=== PATIENT | female | born 2000 | race Caucasian/White ===

== ENCOUNTER 2023-06-29 11:00 | Outpatient (CLI) | payer SELFPAY ==
--- NOTE | 2023-06-29 12:08 | US ---
EXAMINATION TYPE: US OB limited DATE OF EXAM: 06/29/2023 COMPARISON: NONE CLINICAL INDICATION: Female, 22 years old with history of Possible placental abruption; Contractions OB limited per order. EXAM PERFORMED: Transabdominal (TA) GESTATIONAL AGE / DATING Physician Established: (37 weeks/1 days) EDC: 07/19/2023 No growth performed on today?s study per ordering physician SURVEY PLACENTA: Anterior Fundal PREVIA: No Previa Ultrasound evidence of abruption? No PRESENTATION: Breech HEART RATE: 163 bpm RHYTHM: Normal Single live intrauterine gestation. IMPRESSION: 1. No ultrasound evidence for placental abruption. 2. Single live intrauterine gestation with breech presentation.
[2023-06-29 12:30] VITALS: BP 130/69; PULSE 90; RESP 16; TEMP 96.9
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
== END 2023-06-29 12:20 | disposition home or self-care (01) ==
LOC: FBPOP 11:00
PROVIDERS: ATTEND Obstetrics & Gynecology
DX: O26.893 Other specified pregnancy related conditions, third trimester (principal); Z3A.37 37 weeks gestation of pregnancy; R52 Pain, unspecified; Z88.0 Allergy status to penicillin
CPT/HCPCS: 59025; 76815; 99203